=== PATIENT | female | born 1955 | race Hispanic/Latino ===

== ENCOUNTER 2016-09-24 11:52 | Emergency (ER) | payer BC, MEDICAID, OTHER ==
[2016-09-24 12:00] VITALS: RESP 16; TEMP 98.1
--- NOTE | 2016-09-24 12:13 | ED PDOC ---
Arrival/HPI - General Historian: Patient - General Chief Complaint: Lower Extremity Problem/Injury Time Seen by Provider: 09/24/16 12:07 - History of Present Illness Narrative History of Present Illness (Text): 09/24/16 12:10 61yo female present with complaint of left knee pain s/p trauma minutes ago. states she tripped while crossing a street and injured her left knee. She walked from the site of the trauma to the ED. She denies hitting her head anywhere. Denies LOC, nausea, vomiting, focal weakness, any other complaint. she is not on any anticoagulant. (iVnod Figueroa A) Past Medical History - Provider Review Nursing Documentation Reviewed: Yes - Reproductive Menopause: Yes - Cardiac Hx Cardiac Disorders: No - Pulmonary Hx Respiratory Disorders: No - Neurological Hx Neurological Disorder: No - HEENT Hx HEENT Disorder: No - Renal Hx Renal Disorder: No - Endocrine/Metabolic Hx Endocrine Disorders: No - Hematological/Oncological Hx Blood Disorders: No - Integumentary Hx Dermatological Disorder: No - Musculoskeletal/Rheumatological Hx Arthritis: Yes - Gastrointestinal Hx Gastrointestinal Disorders: No - Genitourinary/Gynecological Hx Genitourinary Disorders: No - Psychiatric Hx Psychophysiologic Disorder: No Hx Substance Use: No - Surgical History Other/Comment: R/T ECTOPIC , LUMPECTOMY Family/Social History - Physician Review Nursing Documentation Reviewed: Yes Family/Social History: Unknown Family HX Smoking Status: Never Smoked Hx Alcohol Use: Yes Frequency of alcohol use: Socially Hx Substance Use: No Allergies/Home Meds Allergies/Adverse Reactions: Allergies dextromethorphan Allergy (Verified 09/24/16 11:55) SWELLING diphenhydramine HCl [From Benadryl] Allergy (Verified 09/24/16 11:55) RASH Review of Systems - Physician Review All systems were reviewed & negative as marked: Yes - Review of Systems Constitutional: Normal Eyes: Normal ENT: Normal Respiratory: Normal Cardiovascular: Normal Gastrointestinal: Normal Genitourinary Female: Normal Musculoskeletal: Arthralgias (LEft knee pain) Skin: Normal Neurological: Normal Endocrine: Normal Hemo/Lymphatic: Normal Psychiatric: Normal Physical Exam Vital Signs Reviewed: Yes Temperature: Afebrile Blood Pressure: Normal Pulse: Regular Respiratory Rate: Normal Appearance: Positive for: Well-Appearing, Non-Toxic, Comfortable Pain Distress: None Mental Status: Positive for: Alert and Oriented X 3 - Systems Exam Head: Present: Atraumatic, Normocephalic Pupils: Present: PERRL Extroacular Muscles: Present: EOMI Conjunctiva: Present: Normal Mouth: Present: Moist Mucous Membranes Neck: Present: Normal Range of Motion Respiratory/Chest: Present: Clear to Auscultation, Good Air Exchange. No: Respiratory Distress, Accessory Muscle Use Cardiovascular: Present: Regular Rate and Rhythm, Normal S1, S2. No: Murmurs Abdomen: Present: Normal Bowel Sounds. No: Tenderness, Distention, Peritoneal Signs Back: Present: Normal Inspection Upper Extremity: Present: Normal Inspection. No: Cyanosis, Edema Lower Extremity: Present: NORMAL PULSES, Normal ROM, Tenderness (Focal tenderness over lateral left knee), Neurovascularly Intact. No: Edema, CALF TENDERNESS, Cyanosis, Swelling, Erythema, Deformity, Temperature Abnormalties Neurological: Present: GCS=15, CN II-XII Intact, Speech Normal Skin: Present: Warm, Dry, Normal Color. No: Rashes Psychiatric: Present: Alert, Oriented x 3, Normal Insight, Normal Concentration Vital Signs Temp Pulse Resp BP Pulse Ox 09/24/16 13:50 80 16 140/90 99 09/24/16 11:55 98.1 F 92 H 16 156/103 H 97 Medical Decision Making ED Course and Treatment: 09/24/16 13:25 Left knee xray - No acute fracture noted Knee immobilizer placed. Advised to RICE knee Result DW the pt. Referred to ortho (Vinod Figueroa) - RAD Interpretation Radiology Orders: 09/24/16 12:07 KNEE WITH PATELLA LEFT 3 VIEW [RAD] Stat - Medication Orders Current Medication Orders: Discontinued Medications Ibuprofen (Motrin Tab) 600 mg PO STAT STA Stop: 09/24/16 12:08 Last Admin: 09/24/16 12:39 Dose: 600 MG MAR Pain/Vitals Document 09/24/16 12:39 BRAD (Rec: 09/24/16 13:12 BRAD [id number]) Pain Reassessment Is This A Pain ReAssessment? No Sleep Is patient sleeping during reassessment? No Presence of Pain Presence of Pain Yes Disposition/Present on Arrival - Present on Arrival Any Indicators Present on Arrival: No History of DVT/PE: No History of Uncontrolled Diabetes: Yes Urinary Catheter: Yes History of Decub. Ulcer: Yes History Surgical Site Infection Following: None - Disposition Have Diagnosis and Disposition been Completed?: Yes Disposition Time: 13:30 Patient Plan: Discharge - Disposition Diagnosis: Knee sprain Disposition: HOME/ ROUTINE Condition: STABLE Discharge Instructions (ExitCare): Knee Sprain (ED) Additional Instructions: Rest, Ice, compress and elevated knee Follow up with orthopedics Return to ED for any new or worsening symptoms Prescriptions: Naproxen [Naprosyn] 500 mg PO BID #20 tab Referrals: Tip Perez DO [Primary Care Provider] - Follow up with primary Jung Tariq MD [Staff Provider] - Follow up with primary
[2016-09-24 13:51] VITALS: BP 140/90; PULSE 80; O2SAT 99
--- NOTE | 2016-09-24 14:13 | RAD ---
PROCEDURE: Left Knee Radiographs. HISTORY: Pain. COMPARISON: None. FINDINGS: BONES: No evidence of acute fracture. JOINTS: [id number] osteoarthritic changes P JOINT EFFUSION: None. OTHER FINDINGS: None. IMPRESSION: No evidence of acute fracture or dislocation.
== END 2016-09-24 14:14 | disposition home or self-care (01) ==
LOC: ED 11:52
DX: S83.92XA Sprain of unspecified site of left knee, initial encounter (principal); W01.0XXA Fall on same level from slipping, tripping and stumbling without subsequent striking against object, initial encounter; Y93.01 Activity, walking, marching and hiking; Y92.410 Unspecified street and highway as the place of occurrence of the external cause

== ENCOUNTER 2016-10-21 09:39 | Day surgery (SDC) | payer MEDICAID ==
[2016-10-13 14:18] VITALS: BMI 29.7
[2016-10-21] MEDS ORDERED: Propofol 10 mg/ml Inj (20 ML) ONE ×2 (12:25→12:51)
[2016-10-21] MEDS ORDERED: Lidocaine 2% Inj (20ml) ONE ×2 (12:26)
[2016-10-21] MEDS ORDERED: Sodium Chloride 0.9% 1,000 ML IV SCH (13:15)
[2016-10-21 13:49] VITALS: BP 114/68; PULSE 75; RESP 18; TEMP 97.7; O2SAT 100
== END 2016-10-21 14:24 | disposition home or self-care (01) ==
LOC: ENDO 09:39
PROVIDERS: ATTEND Internal Medicine Gastroenterology
DX: Z12.11 Encounter for screening for malignant neoplasm of colon (principal); K64.8 Other hemorrhoids
CPT/HCPCS: 45378; J2704; J7040 ×2

== ENCOUNTER 2017-03-03 09:42 | Day surgery (SDC) | payer MEDICAID ==
[2017-02-24 11:43] VITALS: BMI 25.3
[2017-03-03] MEDS ORDERED: Propofol 10 mg/ml Inj (20 ML) ONE (12:37)
[2017-03-03] MEDS ORDERED: Lidocaine 2% Inj (20ml) ONE (12:44)
[2017-03-03] MEDS ORDERED: Sodium Chloride 0.9% 1,000 ML IV SCH (13:15)
[2017-03-03 13:39] VITALS: RESP 16
[2017-03-03 14:15] VITALS: BP 119/77; PULSE 67; TEMP 97.5; O2SAT 100
== END 2017-03-03 14:27 | disposition home or self-care (01) ==
LOC: ENDO 09:42
PROVIDERS: ATTEND Internal Medicine Gastroenterology
DX: Z12.11 Encounter for screening for malignant neoplasm of colon (principal); K64.8 Other hemorrhoids

== ENCOUNTER 2017-11-06 08:52 | Emergency (ER) | payer MEDICAID ==
[2017-11-06 09:21] VITALS: TEMP 98; O2SAT 100; BMI 21.9
[2017-11-06 09:51] LABS: BASO # 0.01 K/mm3 (0.0-2.0); BASO % 0.2 % (0.0-3.0); EOS % 0.6 % (1.5-5.0); GRAN # 3.4 (1.4-6.5); GRAN % 70.6 % (50.0-68.0); HEMOGLOBIN 11.6 g/dL (12.0-16.0); LYMPH # 1.2 (1.2-3.4); LYMPH % 24.7 % (22.0-35.0); MEAN CELL VOLUME 86.9 fl (80.0-105.0); MEAN CORPUSCULAR HEMOGLOBIN 29.3 pg (25.0-35.0); MEAN CORPUSCULAR HGB CONC 33.7 g/dl (31.0-37.0); MEAN PLATELET VOLUME 9.8 fl (7.0-11.0); MONO # 0.2 (0.1-0.6); MONO % 3.9 % (1.0-6.0); RBC 3.96 10^6/uL (3.5-6.1); RED CELL DISTRIBUTION WIDTH 12.5 % (11.5-14.5); WHITE BLOOD COUNT 4.8 10^3/ul (4.5-11.0)
[2017-11-06 10:00] LABS: INR 1.44 (0.93-1.08); PARTIAL THROMBOPLASTIN TIME 31.8 Seconds (25.1-36.5); PROTHROMBIN TIME 16.7 SECONDS (9.4-12.5)
[2017-11-06 10:17] LABS: URINE APPEARANCE CLEAR (CLEAR); URINE BILIRUBIN NEGATIVE (NEGATIVE); URINE BLOOD MODERATE (NEGATIVE); URINE COLOR YELLOW (YELLOW); URINE GLUCOSE (UA) NEGATIVE (NEGATIVE); URINE LEUKOCYTE ESTERASE NEGATIVE Leu/uL (NEGATIVE); URINE PROTEIN TRACE mg/dL (<30 mg/dL); URINE UROBILINOGEN 0.2 E.U./dL (<1 E.U./dL)
[2017-11-06 10:33] LABS: ALB/GLOB RATIO 1.2 (1.1-1.8); ALBUMIN 4.2 g/dL (3.0-4.8); ALT/SGPT 25 U/L (7-56); AST/SGOT 21 U/L (14-36); BLOOD UREA NITROGEN 23 mg/dL (7-21); CALCIUM 9.3 mg/dL (8.4-10.5); GFR AFRICAN-AMERICAN > 60; GFR NON-AFRICAN AMERICAN > 60
[2017-11-06 10:37] LABS: URINE BACTERIA FEW (NEG); URINE EPITHELIAL CELLS 0 - 2 /hpf (0-5); URINE WBC 0 - 2 /hpf (0-6)
[2017-11-06 10:45] LABS: B-TYPE NATRIURETIC PEPTIDE 28.8 pg/mL (0-450); TROPONIN I < 0.01 ng/mL
--- NOTE | 2017-11-06 10:59 | RAD ---
HISTORY: [facility] EX[facility] COMPARISON: No prior. TECHNIQUE: Chest PA and lateral FINDINGS: LUNGS: No active pulmonary disease. PLEURA: No significant pleural effusion identified. No pneumothorax apparent. CARDIOVASCULAR: Normal. OSSEOUS STRUCTURES: No significant abnormalities. VISUALIZED UPPER ABDOMEN: Normal. OTHER FINDINGS: None. IMPRESSION: No active disease.
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
[2017-11-06 12:17] VITALS: BP 120/68; PULSE 74; RESP 18
--- NOTE | 2017-11-06 17:47 | CARD ---
APPROVED REPORT EKG Measurement Heart [id number] <Conclusion> Normal sinus rhythm Nonspecific T wave abnormality Abnormal ECG
== END 2017-11-06 12:37 | disposition home or self-care (01) ==
LOC: ED 08:52
DX: R60.0 Localized edema (principal)